=== PATIENT | male | born 1980 | race Two or more races ===

== ENCOUNTER 2017-10-15 01:46 | Emergency (ER) | payer OTHER ==
[~2017-10-15] VITALS: Ht 185.4 cm; Wt 70.3 kg
[2017-10-15 02:09] VITALS: BP 120/77
[2017-10-15] MEDS ORDERED: Ipratropium 0.02% Inh Soln 2.5ml UD HHN SCH (02:15)
[2017-10-15] MEDS ORDERED: Albuterol ud Inhalation HHN SCH (02:15)
[2017-10-15 02:50] VITALS: BP 125/71
--- NOTE | 2017-10-15 03:44 | Emergency Room Report ---
History of Present Illness General Chief Complaint: Dyspnea/Respdistress Source: Patient Present Illness HPI 37-year-old male with history of asthma, p/w SOB for 1 days. SOB occurs both at rest and on exertion. + non productive cough. Denies chest pain. Patient states he went to an urgent care, has steroids Pt states that this episode is similar to other episodes of asthma exacerbation. Denies fever, chills. Denies sick contacts or recent travel. Patient denies history of ICU admissions, intubations, or usage of BIPAP for asthma. Allergies: Coded Allergies: No Known Allergies (Unverified , 10/15/17) Patient History Past Medical History: see triage record Past Surgical History: none Pertinent Family History: none Reviewed Nursing Documentation: PMH: Agreed, PSxH: Agreed Nursing Documentation-PMH Hx Asthma: Yes Review of Systems All Other Systems: negative except mentioned in HPI Physical Exam Vital Signs Date Time Temp Pulse Resp B/P (MAP) Pulse Ox O2 Delivery O2 Flow Rate FiO2 10/15/17 01:59 98.1 88 20 120/77 97 Room Air 10/15/17 02:13 21 Sp02 EP Interpretation: reviewed, normal General Appearance: alert, GCS 15, non-toxic, mild distress Head: normocephalic, atraumatic Eyes: bilateral eye normal inspection, bilateral eye PERRL, bilateral eye EOMI ENT: normal ENT inspection, normal pharynx, normal voice, moist mucus membranes Neck: normal inspection, full range of motion, supple Respiratory: no retraction, speaking full sentences, other - exp wheezing bl, chest symmetrical Cardiovascular #1: normal inspection, regular rate, rhythm, normal capillary refill Cardiovascular #2: 2+ radial (R), 2+ radial (L) Gastrointestinal: normal inspection, non tender, soft, non-distended, no guarding Musculoskeletal: normal inspection, back normal, normal range of motion, non- tender Neurologic: normal inspection, alert, oriented x3, responsive, motor strength/ tone normal, sensory intact, normal gait, speech normal Psychiatric: normal inspection, judgement/insight normal, memory normal Skin: normal inspection, normal color, no rash, warm/dry, well hydrated, normal turgor Medical Decision Making Diagnostic Impression: Primary Impression: Asthma exacerbation ER Course 37-year-old male with history of asthma p/w SOB DDX: Asthma exacerbation, pneumonia, upper respiratory infection/viral syndrome Plan: Combivent nebulizer treatment x 3, steroids, ER Course: Patient has been treated with combivent x 3, steroid Patient's overall respiratory status has improved in ED. however suggestive of some wheezing, I wanted to give patient more nebulizer treatment since she is still wheezing, however states that he wants to leave and go home He speaking in complete sentences Disposition: The patient left AGAINST MEDICAL ADVICE Patient is clinically sober, is free from from distracting injury, and has intact judgement and capacity to decide to leave against medical advice. Patient came in for shortness of breath. I'm concerned for asthma exacerbation. Patient verbalized understanding of my concern and my need to give him a nebulizer treatment, but patient states "I want to leave ". I explained to patient the risks of leaving AMA and patient informed that if they leave, they could get worse, ould become become critically ill, possibly become disabled or . Patient verbalized back to me understanding of these risks but still wants to leave. I did not discharge patient with steroids as he only has steroids at home Strict precautions are discussed with patient on when to emergently return to the ED including: persistent or worsening SOB, chest pain, fever, chills, which could indicate severe illness. Patient verbalized understanding. Patient is to follow up with her/his PMD within 5 days. Patient agrees with plan. Please note that this Emergency Department Report was dictated using [employer] machine operator helper technology software, occasionally this can lead to erroneous entry secondary to interpretation by the dictation equipment. Last Vital Signs Date Time Temp Pulse Resp B/P (MAP) Pulse Ox O2 Delivery O2 Flow Rate FiO2 10/15/17 02:25 82 20 99 Room Air 21 10/15/17 02:09 98.1 120/77 Disposition: AGAINST MEDICAL ADVICE Condition: Improved Patient Instructions: Asthma, Adult Tania Byrne M.D. Oct 15, 2017 03:44
== END 2017-10-15 02:50 | disposition left against medical advice (07) ==
LOC: EMR 02:50
DX: J45.901 Unspecified asthma with (acute) exacerbation (principal)
CPT/HCPCS: 94640; 94664; 99284